=== PATIENT | male | born 1990 | race Caucasian/White ===

== ENCOUNTER 2021-11-26 00:11 | Emergency (ER) | payer SELFPAY ==
[2021-11-26] MEDS ORDERED: Boostrix 0.5 ML (Tdap) VIAL (>/=7 yrs of age) ONE (00:38)
[2021-11-26] MEDS ORDERED: Lidocaine 1% PF 5 ML VIAL ONE (00:59)
== END 2021-11-26 01:43 | disposition home or self-care (01) ==
LOC: ERS 00:11
DX: S01.01XA Laceration without foreign body of scalp, initial encounter (principal); F17.290 Nicotine dependence, other tobacco product, uncomplicated; Z23 Encounter for immunization; V27.4XXA Motorcycle driver injured in collision with fixed or stationary object in traffic accident, initial encounter
CPT/HCPCS: 12002; 90471; 90715